=== PATIENT | male | born 1950 | race Caucasian/White ===

== ENCOUNTER 2021-04-14 08:08 | Emergency (ER) | payer OTHER ==
[~2021-04-14] VITALS: Ht 165.1 cm; Wt 73.0 kg
[2021-04-14] MEDS ORDERED: TETANUS, DIPHTHERIA, PERTUSSIS VAC/PF 0.5ML (>10YR OLD) IM ONE (08:30)
[2021-04-14] MEDS ORDERED: ACETAMINOPHEN 325MG TABLET PO ONE (08:45)
[2021-04-14 09:45] VITALS: BP 157/79
== END 2021-04-14 10:43 | disposition home or self-care (01) ==
LOC: ER 08:08
DX: T14.8XXA Other injury of unspecified body region, initial encounter (principal); W54.0XXA Bitten by dog, initial encounter; Y93.01 Activity, walking, marching and hiking; Y92.89 Other specified places as the place of occurrence of the external cause; Y99.8 Other external cause status
CPT/HCPCS: 73552; 90471; 90715; 99283